=== PATIENT | male | born 1995 | race Caucasian/White ===

== ENCOUNTER 2020-09-18 08:53 | Emergency (ER) | payer SELFPAY ==
--- NOTE | 2020-09-18 09:29 | ER ---
Nurse's Notes [facility] Name: Wayne Jose Age: 25 yrs Sex: Male : 1995 Arrival Date: 09/18/2020 Time: 08:56 Bed 3 Private MD: Diagnosis: Otitis media, unspecified, right ear Presentation: 09/18 09:11 Chief complaint: Patient states: "I have a piece of cotton swab stuck in my right ear aa5 since last night". 09:11 Coronavirus screen: At this time, the client does not indicate any symptoms associated aa5 with coronavirus-19. Ebola Screen: Patient negative for fever greater than or equal to 101.5 degrees Fahrenheit, and additional compatible Ebola Virus Disease symptoms. Initial Sepsis Screen: Does the patient meet any 2 criteria? No. Patient's initial sepsis screen is negative. Does the patient have a suspected source of infection? No. Patient's initial sepsis screen is negative. Risk Assessment: Do you want to hurt yourself or someone else? Patient reports no desire to harm self or others. Onset of symptoms was September 18, 2020. 09:11 Method Of Arrival: Ambulatory aa5 09:11 Acuity: DUSTIN 4 aa5 Historical: - Allergies: 09:20 No Known Allergies; aa5 - PMHx: 09:20 None; aa5 - PSHx: 09:20 None; aa5 - Immunization history:: Adult Immunizations unknown. - Social history:: Smoking status: Patient denies any tobacco usage or history of. Vital Signs: 09:11 BP 131 / 77; Pulse 85; Resp 16 S; Temp 97.3(TE); Pulse Ox 97% on R/A; Weight 127.01 kg aa5 (R); Height 5 ft. 9 in. (175.26 cm) (R); 09:11 Body Mass Index 41.35 (127.01 kg, 175.26 cm) aa5 ED Course: 08:56 Patient arrived in ED. am2 09:11 Arm band placed on. aa5 09:13 Truman Zarate RN is Primary Nurse. jd3 09:17 Denis Kim PA is PHCP. cp 09:17 Yehuda Medina MD is Attending Physician. cp 09:19 Triage completed. aa5 Administered Medications: No medications were administered Outcome: :28 Discharge ordered by MD. guillen 09:41 Patient left the ED. tw2 Signatures: Vidhya Roman RN RN aa5 Denis Kim PA PA cp Wise, Tara, RN RN tw2 Ruth Arthur 2 Truman Zarate RN RN jd3
--- NOTE | 2020-09-18 09:29 | EDPHYS ---
Physician Documentation [facility] Name: Wayne Jose Age: 25 yrs Sex: Male : 1995 Arrival Date: 09/18/2020 Time: 08:56 Bed 3 Private MD: ED Physician Yehuda Medina HPI: 09/18 09:24 This 25 yrs old Male presents to ER via Ambulatory with complaints of Foreign cp Body In Ear. 09:24 The patient presents with a foreign body sensation, tip of q-tip, pain, that is acute. cp The complaints affect the right ear. Onset: The symptoms/episode began/occurred last night. Associated signs and symptoms: Pertinent positives: cough, Pertinent negatives: fever, sinus trouble, sore throat. Severity of symptoms: in the emergency department the symptoms are unchanged. Historical: - Allergies: 09:20 No Known Allergies; aa5 - PMHx: 09:20 None; aa5 - PSHx: 09:20 None; aa5 - Immunization history:: Adult Immunizations unknown. - Social history:: Smoking status: Patient denies any tobacco usage or history of. ROS: 09:25 Eyes: Negative for injury, pain, redness, and discharge. cp 09:25 Constitutional: Negative for body aches, chills, fever. 09:25 ENT: Positive for ear pain, foreign body sensation, Negative for sinus congestion, sinus pain, sore throat. 09:25 Respiratory: Positive for cough, with no reported sputum, Negative for shortness of breath, wheezing. 09:25 Abdomen/GI: Negative for abdominal pain, nausea, vomiting, and diarrhea. 09:25 Skin: Negative for rash. 09:25 Neuro: Negative for headache. 09:25 All other systems are negative. Exam: 09:26 Head/Face: Normocephalic, atraumatic. cp 09:26 Constitutional: The patient appears in no acute distress, alert, awake, non-toxic, well developed, well nourished. 09:26 Eyes: Periorbital structures: appear normal, Conjunctiva: normal, no exudate, no injection, Lids and lashes: appear normal, bilaterally. 09:26 ENT: External ear(s): are unremarkable, Ear canal(s): are normal, clear, TM's: bulging, is not appreciated, erythema, that is mild, on the right, Nose: is normal, Mouth: Lips: moist, Oral mucosa: moist, Posterior pharynx: Airway: no evidence of obstruction, patent. 09:26 Neck: ROM/movement: is normal, is supple. 09:26 Chest/axilla: Inspection: normal. 09:26 Cardiovascular: Rate: normal. 09:26 Respiratory: the patient does not display signs of respiratory distress, Respirations: normal, no use of accessory muscles. 09:26 Skin: no rash present. Vital Signs: 09:11 BP 131 / 77; Pulse 85; Resp 16 S; Temp 97.3(TE); Pulse Ox 97% on R/A; Weight 127.01 kg aa5 (R); Height 5 ft. 9 in. (175.26 cm) (R); 09:11 Body Mass Index 41.35 (127.01 kg, 175.26 cm) aa5 MDM: 09:22 Patient medically screened. cp 09:28 Data reviewed: vital signs, nurses notes, and as a result, I will discharge patient. cp Administered Medications: No medications were administered Disposition: 10:17 Co-signature as Attending Physician, Yehuda Medina MD. rn Disposition: 09/18/20 09:28 Discharged to Home. Impression: Otitis media, unspecified, right ear. - Condition is Stable. - Discharge Instructions: Otitis Media, Adult. - Prescriptions for Amoxicillin 875 mg Oral Tablet - take 1 tablet by ORAL route every 12 hours for 10 days; 20 tablet. - Medication Reconciliation Form, Thank You Letter, Antibiotic Education, Prescription Opioid Use form. - Follow up: Private Physician; When: 1 - 2 days; Reason: Worsening of condition. - Problem is new. - Symptoms are unchanged. Signatures: Yehuda Medina MD MD rn Calderon, Audri RN RN aa5 Denis Kim PA PA cp Wise, Tara RN RN tw2 Corrections: (The following items were deleted from the chart) 09:41 09:28 09/18/2020 09:28 Discharged to Home. Impression: Otitis media, unspecified, right tw2 ear. Condition is Stable. Forms are Medication Reconciliation Form, Thank You Letter, Antibiotic Education, Prescription Opioid Use. Follow up: Private Physician; When: 1 - 2 days; Reason: Worsening of condition. Problem is new. Symptoms are unchanged. cp
[2020-09-18 10:00] VITALS: BP 131/77; TEMP 97.3; O2SAT 97
== END 2020-09-18 09:41 | disposition home or self-care (01) ==
LOC: ER 08:53
DX: H66.91 Otitis media, unspecified, right ear (principal)
CPT/HCPCS: 99281

== ENCOUNTER 2021-11-18 21:00 | Emergency (ER) | payer SELFPAY ==
[2021-11-18] MEDS ORDERED: ACETAMINOPHEN 500 MG TAB ONE (21:49)
[2021-11-18] MEDS ORDERED: ONDANSETRON 4 MG (ODT) TAB ONE (21:50)
[2021-11-18] MEDS ORDERED: NA CHLORIDE 0.9% 1,000 ML ONE (21:50)
--- NOTE | 2021-11-18 23:27 | ER ---
Nurse's Notes [facility] Name: Wayne Jose Age: 26 yrs Sex: Male : 1995 Arrival Date: 11/18/2021 Time: 21:03 Bed 9 Private MD: Diagnosis: SARS-associated coronavirus as the cause of diseases classified elsewhere;Dehydration Presentation: 11/18 21:19 Chief complaint: N/V,body aches, headache, sore throat, cough, and fever x 2 days. TMAX hb 101.4. Coronavirus screen: Client presents with at least one sign or symptom that may indicate coronavirus-19. Standard/surgical mask placed on the client. Provider contacted for isolation considerations. Ebola Screen: No symptoms or risks identified at this time. Initial Sepsis Screen: Does the patient meet any 2 criteria? No. Patient's initial sepsis screen is negative. Does the patient have a suspected source of infection? No. Patient's initial sepsis screen is negative. Risk Assessment: Do you want to hurt yourself or someone else? Patient reports no desire to harm self or others. Onset of symptoms was November 17, 2021. 21:19 Method Of Arrival: Ambulatory hb 21:19 Acuity: DUSTIN 3 hb Historical: - Allergies: 21:21 No Known Allergies; hb - PMHx: 21:21 None; hb - PSHx: 21:21 None; hb - Immunization history:: Adult Immunizations up to date, Client reports receiving the 2nd dose of the Covid vaccine. - Social history:: Smoking status: Patient denies any tobacco usage or history of. - Family history:: not pertinent. - Hospitalizations: : No recent hospitalization is reported. Screenin:05 Abuse screen: Denies threats or abuse. Denies injuries from another. Nutritional lg3 screening: No deficits noted. Tuberculosis screening: No symptoms or risk factors identified. Fall Risk None identified. Assessment: 22:05 General: Appears in no apparent distress. comfortable, Behavior is calm, cooperative. lg3 Pain: Complains of pain in head, generalized body aches. Neuro: No deficits noted. Level of Consciousness is awake, alert, obeys commands, Oriented to person, place, time, situation. Cardiovascular: No deficits noted. Denies chest pain, shortness of breath, Capillary refill < 3 seconds Clubbing of nail beds is absent JVD is absent Patient's skin is warm and dry. Respiratory: Reports cough that is persistent Airway is patent Trachea midline Respiratory effort is even, unlabored, Respiratory pattern is regular, symmetrical. GI: Abdomen is round non-distended, Bowel sounds present X 4 quads. Abd is soft and non tender X 4 quads. Reports nausea. : No deficits noted. No signs and/or symptoms were reported regarding the genitourinary system. EENT: No deficits noted. No signs and/or symptoms were reported regarding the EENT system. Derm: No deficits noted. No signs and/or symptoms reported regarding the dermatologic system. Skin is intact, is healthy with good turgor, Skin is dry, Skin temperature is warm. Musculoskeletal: No deficits noted. No signs and/or symptoms reported regarding the musculoskeletal system. Circulation, motion, and sensation intact. Range of motion: intact in all extremities. 23:38 Reassessment: Patient appears in no apparent distress at this time. No changes from lg3 previously documented assessment. Patient and/or family updated on plan of care and expected duration. Pain level reassessed. Patient is alert, oriented x 3, equal unlabored respirations, skin warm/dry/pink. Patient states feeling better. Vital Signs: 21:19 BP 135 / 84; Pulse 116; Resp 20; Temp 101.8(TE); Pulse Ox 97% on R/A; Weight 127.01 kg; hb Height 5 ft. 8 in. (172.72 cm); Pain 4/10; 23:38 BP 136 / 78; Pulse 97; Resp 18 S; Temp 98.4(O); Pulse Ox 99% on R/A; lg3 23:39 Temp 98.4(O); lg3 21:19 Body Mass Index 42.57 (127.01 kg, 172.72 cm) ED Course: 21:03 Patient arrived in ED. ja2 21:21 Triage completed. hb 21:21 Arm band placed on. hb 21:24 Yehuda Medina MD is Attending Physician. rn 21:39 Molly Hassan, NITA is Primary Nurse. lg3 22:05 Patient has correct armband on for positive identification. Bed in low position. Call lg3 light in reach. Side rails up X 1. Client placed on continuous cardiac and pulse oximetry monitoring. NIBP monitoring applied. Door closed. Noise minimized. Family accompanied patient. 22:05 Inserted saline lock: 20 gauge in right antecubital area, using aseptic technique. lg3 22:14 XRAY Chest (1 view) In Process Unspecified. EDMS 23:39 No provider procedures requiring assistance completed. IV discontinued, intact, lg3 bleeding controlled, No redness/swelling at site. Pressure dressing applied. Administered Medications: 22:03 Drug: Tylenol 1000 mg Route: PO; lg3 23:39 Follow up: Temp 98.4 Oral; Response: No adverse reaction; Marked relief of symptoms; lg3 Temperature is decreased 22:04 Not Given (Other Intervention Used; other intervention used ): Zofran (Ondansetron) 4 lg3 mg IVP once; over 2 minutes 22:04 Drug: Ondansetron 4 mg Route: PO; lg3 22:05 Follow up: Response: No adverse reaction lg3 22:05 Drug: NS 0.9% 1000 ml Route: IV; Rate: 1000 ml; Site: right antecubital; lg3 23:39 Follow up: IV Status: Completed infusion; IV Intake: 1000ml lg3 Medication: 23:39 VIS not applicable for this client. lg3 Intake: 23:39 IV: 1000ml; Total: 1000ml. lg3 Outcome: 23:26 Discharge ordered by . rn 23:39 Discharged to home ambulatory, with family. lg3 23:39 Condition: stable 23:39 Discharge instructions given to patient, Instructed on discharge instructions, follow up and referral plans. medication usage, Demonstrated understanding of instructions, follow-up care, medications, Prescriptions given X 1. 23:40 Patient left the ED. lg3 Signatures: Dispatcher [employer] EDMS Yehuda Medina MD MD rn Baxter, Heather, RN RN hb Gibson, Lacie, RN RN lg3 aRchel Alvarez Corrections: (The following items were deleted from the chart) 22:04 22:04 Zofran (Ondansetron) 4 mg IVP in right antecubital lg3 lg3
--- NOTE | 2021-11-18 23:27 | EDPHYS ---
Physician Documentation [facility] Name: Wayne Jose Age: 26 yrs Sex: Male : 1995 Arrival Date: 11/18/2021 Time: 21:03 Bed 9 Private MD: ED Physician Yehuda Medina HPI: 11/18 22:13 This 26 yrs old Male presents to ER via Ambulatory with complaints of Vomiting, Fever, rn Sore Throat. 22:13 The patient reports fever, that was measured at 102 degrees Fahrenheit. Onset: The rn symptoms/episode began/occurred yesterday. Modifying factors: The patient has had contact with sick mother. Associated signs and symptoms: Pertinent positives: cough, sore throat, vomiting, Pertinent negatives: altered mental status, skin rash, shortness of breath. Severity of symptoms: At their worst the symptoms were moderate in the emergency department the symptoms have improved. The patient has not experienced similar symptoms in the past. The patient has not recently seen a physician. Mother COVID +, patient now with fever, chills, sore throat, headache, cough, muscle aches, fatigue. Threw up twice after coughing. Denies sob. . Historical: - Allergies: 21:21 No Known Allergies; hb - PMHx: 21:21 None; hb - PSHx: 21:21 None; hb - Immunization history:: Adult Immunizations up to date, Client reports receiving the 2nd dose of the Covid vaccine. - Social history:: Smoking status: Patient denies any tobacco usage or history of. - Family history:: not pertinent. - Hospitalizations: : No recent hospitalization is reported. ROS: 22:13 Constitutional: + fever and chills Eyes: Negative for injury, pain, redness, and government program manager, ENT: + sore throat Neck: Negative for injury, pain, and swelling, Cardiovascular: Negative for chest pain, palpitations, and edema, Respiratory: + cough, neg for sob Abdomen/GI: Negative for abdominal pain, diarrhea, and constipation, MS/Extremity: Negative for injury and deformity, Skin: Negative for injury, rash, and discoloration, Neuro: Negative for numbness, tingling, and seizure. Exam: 22:13 Constitutional: This is a well developed, well nourished patient who is awake, alert, rn and in no acute distress. Head/Face: Normocephalic, atraumatic. Eyes: Periorbital areas with no swelling, redness, or edema. ENT: dry MM, + mild pharyngeal erythema, no swelling or exudate Neck: Trachea midline, no thyromegaly or masses palpated, and no cervical lymphadenopathy. Supple, full range of motion without nuchal rigidity, or vertebral point tenderness. No Meningismus. Cardiovascular: Tachycardic, regular Respiratory: No increased work of breathing, no retractions or nasal flaring. Abdomen/GI: Soft, non-tender Skin: Warm, dry, no cyanosis MS/ Extremity: Pulses equal, no cyanosis. Neurovascular intact. Full, normal range of motion. Equal circumference. Neuro: Awake and alert, GCS 15 Vital Signs: 21:19 BP 135 / 84; Pulse 116; Resp 20; Temp 101.8(TE); Pulse Ox 97% on R/A; Weight 127.01 kg; hb Height 5 ft. 8 in. (172.72 cm); Pain 4/10; 23:38 BP 136 / 78; Pulse 97; Resp 18 S; Temp 98.4(O); Pulse Ox 99% on R/A; lg3 23:39 Temp 98.4(O); lg3 21:19 Body Mass Index 42.57 (127.01 kg, 172.72 cm) hb MDM: 21:24 Patient medically screened. rn 23:25 Differential diagnosis: viral Infection, URI, pneumonia. Data reviewed: vital signs, rn nurses notes, lab test result(s), radiologic studies, plain films, and as a result, I will discharge patient. Counseling: I had a detailed discussion with the patient and/or guardian regarding: the historical points, exam findings, and any diagnostic results supporting the discharge/admit diagnosis, lab results, radiology results, the need for outpatient follow up, to return to the emergency department if symptoms worsen or persist or if there are any questions or concerns that arise at home. Response to treatment: the patient's symptoms have markedly improved after treatment, and as a result, I will discharge patient. Special discussion: I discussed with the patient/guardian in detail that at this point there is no indication for admission to the hospital. It is understood, however, that if the symptoms persist or worsen the patient needs to return immediately for re-evaluation. 11/18 21:38 Order name: SARS-COV-2 RT PCR (Document "Date of Onset" if Symptomatic); Complete Time: rn 23:25 11/18 21:38 Order name: XRAY Chest (1 view) rn 11/18 21:38 Order name: IV Start; Complete Time: 22:05 rn Administered Medications: 22:03 Drug: Tylenol 1000 mg Route: PO; lg3 23:39 Follow up: Temp 98.4 Oral; Response: No adverse reaction; Marked relief of symptoms; lg3 Temperature is decreased 22:04 Not Given (Other Intervention Used; other intervention used ): Zofran (Ondansetron) 4 lg3 mg IVP once; over 2 minutes 22:04 Drug: Ondansetron 4 mg Route: PO; lg3 22:05 Follow up: Response: No adverse reaction lg3 22:05 Drug: NS 0.9% 1000 ml Route: IV; Rate: 1000 ml; Site: right antecubital; lg3 23:39 Follow up: IV Status: Completed infusion; IV Intake: 1000ml lg3 Disposition Summary: 11/18/21 23:26 Discharge Ordered Location: Home rn Problem: new rn Symptoms: have improved rn Condition: Stable rn Diagnosis - SARS-associated coronavirus as the cause of diseases classified elsewhere rn - Dehydration rn Followup: rn - With: Private Physician - When: As needed - Reason: Recheck today's complaints, Re-evaluation by your physician Discharge Instructions: - Discharge Summary Sheet rn - Dehydration, Adult rn - COVID-19 rn - 10 Things You Can Do to Manage Your COVID-19 Symptoms at Home - [facility] rn - Viral Illness, Adult rn Forms: - Medication Reconciliation Form rn - Thank You Letter rn - Antibiotic overnight babysitter - Prescription Opioid Use rn Prescriptions: - ondansetron 4 mg Oral tablet,disintegrating - take 1 tablet by ORAL route every 8 hours As needed; 10 tablet; Refills: 0, rn Product Selection Permitted Signatures: Dispatcher [employer] Yehuda Abarca MD MD rn Baxter, Heather RN Molly Heredia RN RN lg3
[2021-11-18 23:56] VITALS: BP 136/78; TEMP 98.4; O2SAT 99
--- NOTE | 2021-11-19 12:53 | RAD REPORT ---
EXAM DESCRIPTION: Chest Single View CLINICAL HISTORY: 26 years Male COVID, cough TECHNIQUE: View of the chest. COMPARISON: No prior exams provided for comparison. FINDINGS: Increased bronchovascular markings and cardiac size may be related to low lung volumes. Th ere is no focal consolidation, effusion, or pneumothorax. No acute osseous lesion. IMPRESSION: Low lung volumes. No other acute cardiopulmonary abnormalities. Electronically signed by: Annalise Nolasco MD 11/18/2021 11:02 PM CDT Due to temporary technical issues with the PACS/Fluency reporting system, reports are being signed by the in house radiologists without review as a courtesy to insure prompt reporting. The interpreting radiologist is fully responsible for the content of the report.
== END 2021-11-18 23:40 | disposition home or self-care (01) ==
LOC: ER 21:00
DX: U07.1 COVID-19 (principal); E86.0 Dehydration
CPT/HCPCS: 71045; 96360; 96361; 99284; J7030; Q0162; U0003

== ENCOUNTER 2024-08-27 05:56 | Emergency (ER) | payer SELFPAY ==
[2024-08-27] MEDS ORDERED: MUPIROCIN 2% OINT 22GM TUBE TOP ONE (06:24)
[2024-08-27] MEDS ORDERED: TDAP (DIPHTH,PERTUSS(ACELL),TET VAC) 0.5 ML VIAL IMVAC ONE (06:24)
--- NOTE | 2024-08-27 06:25 | ER ---
Nurse's Notes [facility] Name: Wayne Jose Age: 28 yrs Sex: Male : 1995 Arrival Date: 08/27/2024 Time: 05:56 Bed 8 Private MD: Diagnosis: Abrasion of scalp Presentation: 08/27 06:09 Chief complaint: Patient states: HIT HEAD IN A METAL BEAM, LACERATION TO HEAD ABOUT 12 ha1 HOURS AGO. NO LOC. 06:09 Coronavirus screen: Client denies travel out of the [place] in the last 14 days. Ebola ha1 Screen: No symptoms or risks identified at this time. Initial Sepsis Screen: Does the patient meet any 2 criteria? No. Patient's initial sepsis screen is negative. Does the patient have a suspected source of infection? No. Patient's initial sepsis screen is negative. Risk Assessment: Do you want to hurt yourself or someone else? Patient reports no desire to harm self or others. Onset of symptoms was August 27, 2024. 06:09 Method Of Arrival: Ambulatory ha1 06:09 Acuity: DUSTIN 3 ha1 Triage Assessment: 06:20 General: Appears in no apparent distress. comfortable, Behavior is calm, cooperative, bm8 appropriate for age. Pain: Complains of pain in top of head Pain currently is 0 out of 10 on a pain scale. EENT: No deficits noted. No signs and/or symptoms were reported regarding the EENT system. Neuro: No deficits noted. Level of Consciousness is awake, alert, obeys commands, Oriented to person, place, time, situation, Appropriate for age. Cardiovascular: Capillary refill < 3 seconds in bilateral fingers Patient's skin is warm and dry. Respiratory: Airway is patent Respiratory effort is even, unlabored, Respiratory pattern is regular, symmetrical. GI: No signs and/or symptoms were reported involving the gastrointestinal system. : No signs and/or symptoms were reported regarding the genitourinary system. Derm: Wound noted top of head Wound is 1 inch lac on top of head. Musculoskeletal: No signs and/or symptoms reported regarding the musculoskeletal system. Historical: - Allergies: 06:21 No Known Allergies; bm8 - Home Meds: 06:21 None [Active]; bm8 - PMHx: 06:21 None; bm8 - PSHx: 06:21 None; bm8 - Immunization history:: Adult Immunizations up to date. - Infectious Disease History:: Denies. - Family history:: not pertinent. - Social history:: Smoking status: Patient denies any tobacco usage or history of. Screenin:21 [facility] ED Fall Risk Assessment (Adult) History of falling in the last 3 months, bm8 including since admission No falls in past 3 months (0 pts) Confusion or Disorientation No (0 pts) Intoxicated or Sedated No (0 pts) Impaired Gait No (0 pts) Mobility Assist Device Used No (0 pt) Altered Elimination No (0 pt) Score/Fall Risk Level 0 - 2 = Low Risk Oriented to surroundings, Maintained a safe environment, Educated pt \T\ family on fall prevention, incl call for assistance when getting out of bed, Assessed \T\ reinforced patient's understanding of fall precautions, Hourly rounding (assess needs \T\ fall precautionary measures) done, Used ambulatory aids as needed (educated on \T\ assisted with), Used gait belt as appropriate. Abuse screen: Denies threats or abuse. Nutritional screening: No deficits noted. Tuberculosis screening: No symptoms or risk factors identified. Assessment: 06:21 Reassessment: see triage assessment. bm8 06:33 Reassessment: Patient appears in no apparent distress at this time. No changes from bm8 previously documented assessment. Patient and/or family updated on plan of care and expected duration. Pain level reassessed. Patient is alert, oriented x 3, equal unlabored respirations, skin warm/dry/pink. Vital Signs: 06:09 BP 147 / 85; Pulse 88; Resp 16 S; Temp 97.7(O); Pulse Ox 97% on R/A; Weight 127.01 kg; ha1 Height 5 ft. 11 in. ; 06:33 BP 127 / 79; Pulse 93; Resp 18; Temp 97.7; Pulse Ox 96% ; Pain 0/10; bm8 06:09 Body Mass Index 39.05 (127.01 kg, 180.34 cm) ha1 06:33 Pain Scale: Adult bm8 [place] Coma Score: 06:21 Eye Response: spontaneous(4). Motor Response: obeys commands(6). Verbal Response: bm8 oriented(5). Total: 15. 06:33 Eye Response: spontaneous(4). Motor Response: obeys commands(6). Verbal Response: bm8 oriented(5). Total: 15. ED Course: 06:05 Patient arrived in ED. hw 06:06 Hollis Bone MD is Attending Physician. rt 06:20 Arm band placed on right wrist. bm8 06:21 Patient has correct armband on for positive identification. Bed in low position. Call bm8 light in reach. Side rails up X 1. Adult w/ patient. Client placed on continuous cardiac and pulse oximetry monitoring. NIBP monitoring applied. Pulse ox on. NIBP on. Door closed. Noise minimized. Verbal reassurance given. Head of bed elevated. 06:21 Patient did not have IV access during this emergency room visit. bm8 06:23 Triage completed. ha1 06:28 Dickson Rodrigues, RN is Primary Nurse. bm8 06:33 Provided Education on: post er care. bm8 06:33 No provider procedures requiring assistance completed. bm8 Administered Medications: 06:28 Drug: Mupirocin Topical Ointment 2 % 1 application Topical once Route: Topical; Site: bm8 affected area; 06:47 Follow up: Response: No adverse reaction bm8 06:28 Drug: Boostrix Tdap IM 0.5 ml IM once; as a single dose Route: IM; Site: right deltoid; bm8 06:47 Follow up: Response: No adverse reaction bm8 Medication: 06:28 Vaccine Information Statement (VIS) provided today. Questions and/or concerns bm8 addressed. VIS edition date: December 06, 2020. Outcome: 06:24 Discharge ordered by . rt 06:33 Discharged to home ambulatory, with family, bm8 06:33 Condition: good 06:33 Discharge instructions given to patient, Instructed on discharge instructions, follow up and referral plans. Demonstrated understanding of instructions, follow-up care, 06:46 Patient left the ED. bm8 Signatures: Nohemi Gutierrez RN RN ha1 Hollis Bone MD MD rt Dickson Rodrigues, RN RN bm8 Melodie Whitfield Corrections: (The following items were deleted from the chart) 06:21 06:19 General: Appears bm8 bm8 06:22 06:21 PMHx: Unable to Obtain; bm8 bm8 06:28 06:21 VIS not applicable for this client. bm8 bm8
--- NOTE | 2024-08-27 06:25 | EDPHYS ---
Physician Documentation [facility] Name: Wayne Jose Age: 28 yrs Sex: Male : 1995 Arrival Date: 08/27/2024 Time: 05:56 Bed 8 Private MD: ED Physician Hollis Bone HPI: 08/27 06:26 This 28 yrs old Male presents to ER via Ambulatory with complaints of Head Injury rt Without LOC-Adult. 06:26 About 12 hours prior to arrival, the patient was at work, hit his head on a steel beam, rt states that bits of rest were falling onto his scalp. Reports an oozing from the wound, no significant bleeding. Denies headache, loss of consciousness, neck pain. Denies other acute complaints at this time, symptoms are mild in severity, no other aggravating or alleviating factors.. Historical: - Allergies: 06:21 No Known Allergies; bm8 - Home Meds: 06:21 None [Active]; bm8 - PMHx: 06:21 None; bm8 - PSHx: 06:21 None; bm8 - Immunization history:: Adult Immunizations up to date. - Infectious Disease History:: Denies. - Family history:: not pertinent. - Social history:: Smoking status: Patient denies any tobacco usage or history of. ROS: 06:26 Constitutional: Negative for fever, chills, and weight loss, Cardiovascular: Negative rt for chest pain, palpitations, and edema, Respiratory: Negative for shortness of breath, cough, wheezing, and pleuritic chest pain, Abdomen/GI: Negative for abdominal pain, nausea, vomiting, diarrhea, and constipation, MS/Extremity: Negative for injury and deformity, Neuro: Negative for headache, weakness, numbness, tingling, and seizure, Exam: 06:26 Constitutional: This is a well developed, well nourished patient who is awake, alert, rt and in no acute distress. Neck: Trachea midline, no thyromegaly or masses palpated, and no cervical lymphadenopathy. Supple, full range of motion without nuchal rigidity, or vertebral point tenderness. No Meningismus. Skin: Warm, dry with normal turgor. Normal color with no rashes, no lesions, and no evidence of cellulitis. MS/ Extremity: Pulses equal, no cyanosis. Neurovascular intact. Full, normal range of motion. Neuro: Awake and alert, GCS 15, oriented to person, place, time, and situation. Cranial nerves II-XII grossly intact. Motor strength 5/5 in all extremities. Sensory grossly intact. Cerebellar exam normal. Normal gait. 06:26 Head/face: Abrasion to the scalp, no full-thickness laceration, no foreign bodies identified, no bruising, other external signs of trauma. Vital Signs: 06:09 BP 147 / 85; Pulse 88; Resp 16 S; Temp 97.7(O); Pulse Ox 97% on R/A; Weight 127.01 kg; ha1 Height 5 ft. 11 in. ; 06:33 BP 127 / 79; Pulse 93; Resp 18; Temp 97.7; Pulse Ox 96% ; Pain 0/10; bm8 06:09 Body Mass Index 39.05 (127.01 kg, 180.34 cm) ha1 06:33 Pain Scale: Adult bm8 [place] Coma Score: 06:21 Eye Response: spontaneous(4). Motor Response: obeys commands(6). Verbal Response: bm8 oriented(5). Total: 15. 06:33 Eye Response: spontaneous(4). Motor Response: obeys commands(6). Verbal Response: bm8 oriented(5). Total: 15. MDM: 06:18 Medical Screening Exam initiated rt 06:26 Differential diagnosis: Abrasion. Data reviewed: vital signs, nurses notes. Test rt considered but Not performed: CT: Apparent minor head trauma, no loss of consciousness, headache. Low suspicion for intracranial hemorrhage, skull fracture, CT scan is not indicated. Counseling: I had a detailed discussion with the patient and/or guardian regarding the historical points, exam findings, and any diagnostic results supporting the discharge/admit diagnosis, the need for outpatient follow up, to return to the emergency department if symptoms worsen or persist or if there are any questions or concerns that arise at home. Administered Medications: 06:28 Drug: Mupirocin Topical Ointment 2 % 1 application Topical once Route: Topical; Site: bm8 affected area; 06:47 Follow up: Response: No adverse reaction 8 06:28 Drug: Boostrix Tdap IM 0.5 ml IM once; as a single dose Route: IM; Site: right deltoid; bm8 06:47 Follow up: Response: No adverse reaction bm8 Disposition Summary: 08/27/24 06:24 Discharge Ordered Notes: Location: Home rt Problem: new rt Symptoms: have improved rt Condition: Stable rt Diagnosis - Abrasion of scalp rt Followup: rt - With: Private Physician - When: 2 - 3 days - Reason: Discharge Instructions: - Discharge Summary Sheet rt - Abrasion rt Forms: - Medication Reconciliation Form rt - Antibiotic Education rt - Prescription Opioid Use rt - Patient Portal Instructions rt - Leadership Thank You Letter rt Signatures: Hollis Bone MD MD rt Dickson Rodrigues, RN RN bm8 Corrections: (The following items were deleted from the chart) 06:22 06:21 PMHx: Unable to Obtain; bm8 bm8
[2024-08-29 02:22] VITALS: TEMP 97.7
[2024-08-29 02:24] VITALS: BP 127/79; O2SAT 96
== END 2024-08-27 06:46 | disposition home or self-care (01) ==
LOC: ER 05:56
DX: S00.01XA Abrasion of scalp, initial encounter (principal); W22.8XXA Striking against or struck by other objects, initial encounter; Y99.0 Civilian activity done for income or pay
CPT/HCPCS: 90715; 96372; 99284